=== PATIENT | female | born 1955 | race Two or more races ===

== ENCOUNTER 2020-06-02 08:37 | Day surgery (SDC) | payer OTHER | END 2020-06-02 12:23 | disposition home or self-care (01) | LOC: AMB-ENDOS 08:37 | PROVIDERS: ATTEND Colon & Rectal Surgery | DX: K63.5 Polyp of colon (principal); K64.8 Other hemorrhoids; Z20.828 Contact with and (suspected) exposure to other viral communicable diseases; Z12.11 Encounter for screening for malignant neoplasm of colon ==